=== PATIENT | male | born 1970 | race Caucasian/White ===

== ENCOUNTER → 2018-10-10 | Outpatient (CLI) | payer OTHER | LOC: M.MRI 06:49 | DX: S83.241A Other tear of medial meniscus, current injury, right knee, initial encounter (principal); M25.761 Osteophyte, right knee; M25.461 Effusion, right knee; X58.XXXA Exposure to other specified factors, initial encounter; Y93.89 Activity, other specified; Y92.89 Other specified places as the place of occurrence of the external cause; Y99.8 Other external cause status ==

== ENCOUNTER 2019-05-14 19:48 | Emergency (ER) | payer OTHER ==
[~2019-05-14] VITALS: Ht 167.6 cm; Wt 124.7 kg
[2019-05-14] MEDS ORDERED: DICLOFENAC SOD50 M1 PO (20:02)
[2019-05-14 20:36] LABS: ABSOLUTE LYMPHOCYTES 1.8 thou/uL (0.8-5.3); ABSOLUTE MONOCYTES 0.5 thou/uL (0.0-1.2); ABSOLUTE NEUTROPHILS 2.4 thou/uL (1.6-8.1); EOSINOPHILS 0.6 %; HEMATOCRIT 40.8 % (42.0-52.0); HEMOGLOBIN 14.2 gm/dL (14.0-18.0); LYMPHOCYTES 37.4 %; MCH 30.9 pg (26.0-34.0); MCHC 34.9 g/dL (28.0-37.0); MCV 88.5 fL (80.0-100.0); MPV 9.1 fl. (7.2-11.1); NUCLEATED RBCS 0 /100WBC; PLATELET COUNT* 229 thou/uL (150-400); RBC 4.61 mil/uL (4.50-6.00); RDW-CV 12.9 % (10.5-14.5); WBC 4.8 thou/uL (4.0-11.0)
[2019-05-14 20:45] LABS: CALCIUM 8.2 mg/dL (8.5-10.1); POTASSIUM 3.6 mmol/L (3.5-5.1)
[2019-05-14 20:46] LABS: PROTIME 10.2 Seconds (9.20-11.50)
[2019-05-14 20:49] LABS: ALBUMIN 3.7 g/dL (3.4-5.0); TOTAL BILIRUBIN 0.5 mg/dL (<0.1-1.0)
[2019-05-14] MEDS ORDERED: ZPAK PO (21:48)
[2019-05-14] MEDS ORDERED: PROMETHAZINE-C473 ML PO (21:48)
[2019-05-14] MEDS ORDERED: IPRAT-ALBUT 0.5-3 ML INH (21:48)
[2019-05-14] MEDS ORDERED: NEBULIZER MISCELL (21:49)
[2019-05-14] MEDS ORDERED: MEDROLDOSEPACK PO (21:52)
[2019-05-14 22:35] VITALS: BP 122/68
--- NOTE | 2019-05-15 10:15 | EKG ---
[place] [address] ELECTROCARDIOGRAM REPORT Name: ROSEANNA HUMPHRIES Room: [facility]#: [id number] Admission: 05/14/19 Attend Phys: Discharge: 05/14/19 Date of : 68 Date of Service: 05/14/191958 Report #: [id number] THIS REPORT FOR: //name// [facility] ED Test Date: 2019-05-14 Test Time: 19:59:02 Pat Name: ROSEANNA HUMPHRIES Department: Room: Gender: Frame Bender: MAVIS : 1970 Requested By: Terri Larson Order Number: [id number] MD: Tomy Epperson Measurements Intervals [place] Rate: 80 P: 7 NM: 160 QRS: -57 QRSD: 117 T: 24 QT: 416 QTc: 480 Interpretive Statements Sinus rhythm Left anterior fascicular block Nonspecific T abnormalities, anterior leads No previous ECG available for comparison Electronically Signed On 05-15-2019 10:13:59 CDT by Tomy Epperson [email or web address] <ELECTRONICALLY SIGNED> By: Tomy Epperson MD, [facility] 05/15/19 1013 [id number] 58 Tomy Epperson MD, [facility] /EPI
== END 2019-05-14 22:35 | disposition home or self-care (01) ==
LOC: M.ERS 19:48
PROVIDERS: Personal Emergency Response Attendant
DX: J20.9 Acute bronchitis, unspecified (principal); M19.90 Unspecified osteoarthritis, unspecified site; Z88.0 Allergy status to penicillin; Z88.5 Allergy status to narcotic agent

== ENCOUNTER 2021-03-06 23:47 | Emergency (ER) | payer BC ==
[~2021-03-06] VITALS: Ht 167.6 cm; Wt 127.0 kg
[~2021-03-06 23:47] MED LIST: DICLOFENAC SOD50 M1 PO; IPRAT-ALBUT 0.5-3 ML INH; MEDROLDOSEPACK PO; NEBULIZER MISCELL; PROMETHAZINE-C473 ML PO; ZPAK PO
[2021-03-07 01:00] LABS: INFLUENZA A ANTIGEN Negative (Negative); INFLUENZA B ANTIGEN Negative (Negative)
[2021-03-07 01:46] LABS: URINE BILIRUBIN NEGATIVE (Negative); URINE BLOOD NEGATIVE (Negative); URINE CLARITY CLEAR; URINE COLOR YELLOW; URINE GLUCOSE-RANDOM NEGATIVE (Negative); URINE KETONES NEGATIVE (Negative); URINE LEUKOCYTES-REFLEX NEGATIVE (Negative); URINE NITRITE-REFLEX NEGATIVE (Negative); URINE PROTEIN NEGATIVE (Negative); URINE UROBILINOGEN 0.2 E.U./dl (0.2-1.0)
[2021-03-07] MEDS ORDERED: PROAIR HFA8.5 GM INH (02:34)
[2021-03-07 02:42] VITALS: BP 108/76
--- NOTE | 2021-03-07 17:57 | EKG ---
[place] [address] ELECTROCARDIOGRAM REPORT Name: JUANROSEANNA EDILSON Room: 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: [place] : 1970 Requested By: Ana Vasquez Order Number: [id number] Reading MD: Sergio Leiva Measurements Intervals [place] Rate: 101 P: 20 PA: 169 QRS: -68 QRSD: 105 T: 51 QT: 347 QTc: 450 Interpretive Statements Sinus tachycardia Left anterior fascicular block Abnormal R-wave progression, late transition Borderline T abnormalities, anterior leads Compared to ECG 05/14/2019 19:59:02 Sinus rhythm no longer present T-wave abnormality still present Electronically Signed On 03-07-2021 17:57:39 [employer] by Sergio Leiva [email or web address] <ELECTRONICALLY SIGNED> By: Sergio Leiva MD, FACC 03/07/21 1757 [id number] 2352 Sergio Leiva MD, FACC /EPI
== END 2021-03-07 02:42 | disposition home or self-care (01) ==
LOC: M.ERS 23:47
PROVIDERS: Emergency Medicine
DX: U07.1 COVID-19 (principal); R42 Dizziness and giddiness; M54.50 Low back pain, unspecified; M19.90 Unspecified osteoarthritis, unspecified site; Z79.899 Other long term (current) drug therapy; Z88.5 Allergy status to narcotic agent; Z88.0 Allergy status to penicillin